=== PATIENT | male | born 1945 | race Asian ===

== ENCOUNTER → 2024-01-12 09:42 | Outpatient (REF) | payer MEDICARE, BC, SELFPAY ==
[2024-01-12 14:31] LABS: Glycohemoglobin (HgbA1c) 7.6 % (4.0-5.6)
== END ==
LOC: HWLAB 09:42
PROVIDERS: ATTENDING PHYSICIAN Family Medicine
DX: E11.9 Type 2 diabetes mellitus without complications (principal)
CPT/HCPCS: 36415; 83036

== ENCOUNTER → 2024-01-31 12:28 | Outpatient (REF) | payer MEDICARE, BC, SELFPAY | LOC: HWRCS 12:28 | PROVIDERS: ATTENDING PHYSICIAN Internal Medicine Cardiovascular Disease; FAMILY PHYSICIAN Family Medicine | DX: I48.0 Paroxysmal atrial fibrillation (principal) | CPT/HCPCS: 93306 ==

== ENCOUNTER → 2024-07-04 16:44 | Outpatient (REF) | payer MEDICARE, BC, SELFPAY | LOC: CLAB 16:44 | PROVIDERS: ATTENDING PHYSICIAN Urology | DX: C61 Malignant neoplasm of prostate (principal) | CPT/HCPCS: 88305 ==

== ENCOUNTER → 2025-01-26 14:27 | Outpatient (REF) | payer MEDICARE, BC, SELFPAY | LOC: HWRCS 14:27 | PROVIDERS: ATTENDING PHYSICIAN Internal Medicine Cardiovascular Disease; FAMILY PHYSICIAN Family Medicine | DX: I48.0 Paroxysmal atrial fibrillation (principal) | CPT/HCPCS: 93306 ==

== ENCOUNTER → 2025-08-17 14:02 | Outpatient (REF) | payer MEDICARE, BC, SELFPAY | LOC: HWRAD 14:02 | PROVIDERS: ATTENDING PHYSICIAN Family Medicine | DX: F03.90 Unspecified dementia, unspecified severity, without behavioral disturbance, psychotic disturbance, mood disturbance, and anxiety (principal) | CPT/HCPCS: 70450 ==